=== PATIENT | female | born 1970 | race Hispanic/Latino ===

== ENCOUNTER 2017-10-13 06:58 | Day surgery (SDC) | payer OTHER ==
[2017-10-05 14:11] VITALS: BMI 35.9
[2017-10-13] MEDS ORDERED: Lidocaine 2% Inj (20ml) ONE (08:03)
[2017-10-13] MEDS ORDERED: Propofol 10 mg/ml Inj (20 ML) ONE ×2 (08:03→08:14)
[2017-10-13] MEDS ORDERED: Sodium Chloride 0.9% 1,000 ML IV SCH (09:00)
[2017-10-13 09:24] VITALS: O2SAT 99
[2017-10-13 09:42] VITALS: BP 117/66; PULSE 83; RESP 16; TEMP 97.7
== END 2017-10-13 10:06 | disposition home or self-care (01) ==
LOC: ENDO 06:58
PROVIDERS: ATTEND Internal Medicine Gastroenterology
DX: K21.0 Gastro-esophageal reflux disease with esophagitis (principal); K31.7 Polyp of stomach and duodenum; K52.9 Noninfective gastroenteritis and colitis, unspecified; K63.5 Polyp of colon; K29.50 Unspecified chronic gastritis without bleeding; K64.0 First degree hemorrhoids
CPT/HCPCS: 43239; 43251; 45380; 84703; 88305; 88312; 88342; J2704; J7040 ×2